=== PATIENT | male | born 1980 | race Caucasian/White ===

== ENCOUNTER 2017-02-28 17:42 | Emergency (ER) | payer SELFPAY ==
--- NOTE | 2017-02-28 18:10 | ERPHSYRPT ---
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-REPORTS PROBLEMS AT WORK THE LAST WEEK ET BREAKING UP WITH HIS GIRLFRIEND TODAY Triage Nursing Assessment: PT PINK WARM ET [id number] ALL QUESTIONS- COOPERATIVE WITH STAFF-DENIES PAIN-DENIES RECENT ILLNESS-MOVING ALL EXTREMITIES WITH EASE-RESP EASY ET NONLABORED-PT ET POLICE REPORT PT HAD BRICKS IN BOTH HANDS ET WAS PACING IN THE YARD-PT STATES HE KNEW WHAT HE WAS DOING BUT DID NOT KNOW WHY-STATES "I JUST FREAKED OUT I GUESS" Timing/Duration: other (patient states he is chronically anxoius, this has been worse this week and apparently broke up with his girlfriend) Modifying Factors: Improves With: nothing Associated Symptoms: No nausea, No vomiting, No abdominal pain, No shortness of breath, No heartburn, No diaphoresis, No cough, No chills, No chest pain, No fever, No headaches, No loss of appetite, No malaise, No rash, No syncope, No seizure, No weakness Hx Tetanus, Diphtheria Vaccination/Date Given: No Hx Influenza Vaccination/Date Given: Yes (2015) Hx Pneumococcal Vaccination/Date Given: No <ACE MADRID - Last Filed: 02/28/17 19:13> <GENEVIEVE PÉREZ - Last Filed: 02/28/17 20:49> - History of Present Illness Time Seen by Provider: 02/28/17 17:59 Physician History: This is a 37-year-old white male who denies significant past medical history. He is brought by the police. According the patient he has been upset he was noted by the police to be walking outside with 2 bricks in his hand he apparently states he has chronic anxiety this has been going worse lately he apparently broke up with his girlfriend today and was noted to be walking around with a brick in his hand. When I asked him if he was wanting to kill himself or harm anybody else he stated no however when I asked him what he had the bricks in his hands for he states it was to protect himself. When I asked him if anybody wanted to harm him he said no. He does state that he feels like he has messed up in the head. He states he is anxious. He states he has been using methamphetamine he states he drinks daily 2-3 beers during the week and more on the weekend. He also smokes occasional marijuana. Past medical history patient denies. (ACE MADRID) Allergies/Adverse Reactions: No Known Drug Allergies Allergy (Verified 02/28/17 17:51) Home Medications: Aspirin 81 gm Chew [Baby Aspirin 81 mg Chew] 81 mg PO DAILY 02/28/17 [ History] - Review of Systems Constitutional: No Fever, No Chills Eyes: No Symptoms Ears, Nose, & Throat: No Symptoms Respiratory: No Cough, No Dyspnea Cardiac: No Chest Pain, No Edema, No Syncope Abdominal/Gastrointestinal: No Abdominal Pain, No Nausea, No Vomiting, No Diarrhea Genitourinary Symptoms: No Dysuria Musculoskeletal: No Back Pain, No Neck Pain Skin: No Rash Neurological: No Dizziness, No Focal Weakness, No Sensory Changes Psychological: Alcohol Abuse, Drug Abuse, Anxiety Endocrine: No Symptoms All Other Systems: Reviewed and Negative <ACE MADRID - Last Filed: 02/28/17 19:13> - Past Medical History Pertinent Past Medical History: Yes Neurological History: No Pertinent History ENT History: No Pertinent History Cardiac History: Hypertension Respiratory History: No Pertinent History Endocrine Medical History: No Pertinent History Musculoskeletal History: No Pertinent History GI Medical History: No Pertinent History History: No Pertinent History Psycho-Social History: No Pertinent History Male Reproductive Disorders: No Pertinent History Other Medical History: CLOTS - Past Surgical History Past Surgical History: No Neuro Surgical History: No Pertinent History Cardiac: No Pertinent History Respiratory: No Pertinent History Gastrointestinal: No Pertinent History Genitourinary: No Pertinent History Musculoskeletal: No Pertinent History Male Surgical History: No Pertinent History - Social History Smoking Status: Never smoker How long have you smoked: 14 YEARS Exposure to second hand smoke: No Drug Use: marijuana Patient Lives Alone: No <ACE MADRID - Last Filed: 02/28/17 19:13> - Physical Exam General Appearance: anxiety, other (patient avoids eye contact) Eye Exam: PERRL/EOMI, eyes nml inspection Ears, Nose, Throat Exam: normal ENT inspection, TMs normal, pharynx normal, moist mucous membranes Neck Exam: normal inspection, non-tender, supple, full range of motion Respiratory Exam: normal breath sounds, lungs clear, No respiratory distress Cardiovascular Exam: regular rate/rhythm, normal heart sounds, normal peripheral pulses Gastrointestinal/Abdomen Exam: soft, normal bowel sounds, No tenderness, No mass Back Exam: normal inspection, normal range of motion, No CVA tenderness, No vertebral tenderness Extremity Exam: normal inspection, normal range of motion, pelvis stable Neurologic Exam: alert, oriented x 3, cooperative, normal mood/affect, nml cerebellar function, nml station & gait, sensation nml, No motor deficits Skin Exam: normal color, warm, dry, No rash SpO2 Interpretation: normal (96%) SpO2: 96 Oxygen Delivery: Room Air <ACE MADRID - Last Filed: 02/28/17 19:13> <GENEVIEVE PÉREZ - Last Filed: 02/28/17 20:49> - Nursing Vital Signs Nursing Vital Signs: Initial Vital Signs Temperature 98.8 F Temperature Source Oral Pulse Rate 100 Respiratory Rate 20 Blood Pressure [Right Arm] 140/70 Pain Intensity 0 - Course Nursing assessment & vital signs reviewed: Yes EKG Interpreted by Me: RATE (129 bpm), Sinus Tach, NORMAL AXIS, Other (EKG, sinus tachycardia, 129 bpm, normal axis, no acute ST or T wave changes noted) <ACE MADRID - Last Filed: 02/28/17 19:13> - Progress Progress: improved <ACE MADRID - Last Filed: 02/28/17 19:13> <GENEVIEVE PÉREZ - Last Filed: 02/28/17 20:49> - Progress Progress Note: 02/28/17 18:28 This is a 37-year-old white male brought by the police the patient was apparently found outside holding to breakfast in his hand and walking around Patient states that he has been chronically anxious he has been worse so lately has been having trouble at work he apparently broke up with his girlfriend today. Patient states that he has been using methamphetamines frequently including today he states that he has been drinking daily. He admits to using marijuana. Patient states that "I am messed up in my head" He states he is chronically anxious and wants treatment When I asked the patient about bricks in his hands I asked if he wanted homicidal or suicidal ideation, he stated that he did not want to hurt himself or anybody else but he had the bricks for protection. When I asked him if he thought anybody wanted to hurt and he said no. The nurses noted that while patient was in the room he apparently heard me dictating or talking and noted to the nurse that "I was pissing him off", apparently thinking I was talking about him. Will go ahead and get CBC CMP urine drug screen EtOH EKG. Will plan on psych consult. When I talk to the patient about possibly obtaining a psych consult with [facility] he was very open to the idea. 02/28/17 19:12 The patient's case has been discussed with Dr Garcia, Dr Pérez will assume care of this patient due to shift change. (ACE MADRID) 02/28/17 19:[address] PÉREZ 191: ANXIOUS BUT COOPERATIVE, PERRL, EOMI, PHARYNX PINK , LUNGS CLEAR, NO CARDIAC RUB, ABDOMINAL B.S. NORMAL, AVOIDS EYE CONTACT. 02/28/17 20:47 [facility] EVALUATION: PT MAY GO HOME AND FOLLOW UP WITH [facility] ON Thursday03/02/17. (GENEVIEVE PÉREZ) <ACE MADRID - Last Filed: 02/28/17 19:13> - Departure Time of Disposition: 20:49 Departure Disposition: Home Critical Care Time: No <GENEVIEVE PÉREZ - Last Filed: 02/28/17 20:49> - Departure Clinical Impression: ANXIETY, UTI, METHAMPHETAMINE USE, HTN Condition: Fair Referrals: BALJEET COBURN [Primary Care Provider] - Instructions: Anxiety -- Adult, Urinary Tract Infection (UTI) Additional Instructions: FOLLOW UP WITH PRIVATE DOCTOR TOMORROW. FOLLOW UP WITH [facility] ON THURSDAY MARCH 02, 2017. Prescriptions: Smz/Tmp Ds Tablet [Bactrim Ds Tablet] 1 udtab PO BID #20 tablet
[2017-02-28 18:29] LABS: BASOPHIL % 0.2 % (0.0-0.4); Eosinophil % 0.6 % (0.00-5.0); Granulocytes % 72.5 % (36.0-66.0); Mean Cell Volume 89.6 fl (78-100); Mean Corpuscular Hemoglobin 30.7 pg (26-32); Mean Platelet Volume 9.8 fl (6-9.5); Monocytes % 10.7 % (0.0-12.0); Platelet Count 260 K/mm3 (150-450); Red Blood Count 5.02 M/mm3 (4.1-5.6); Red Cell Distribution Width 13.1 % (11.5-14.0); White Blood Count 9.4 K/mm3 (4.0-10.5)
[2017-02-28] MEDS ORDERED: Sodium Chloride 0.9% 1000 ML 1,000 ML IV STA ×2 (18:33→19:21)
[2017-02-28] MEDS ORDERED: Ativan 2 MG/1 ML VIAL IV ONE (18:33)
[2017-02-28] MEDS ORDERED: Ativan 2 MG/1 ML VIAL ONE (18:34)
[2017-02-28 18:35] LABS: ADD URINE CULTURE? YES (NO); Bacteria FEW /HPF (NEGATIVE); COMPLETE URINE MICROSCOPIC? YES; Collection Type VOID; Epithelial Cells FEW /HPF (FEW); Hyaline Casts 0-2 /LPF (0-2); Mucus SLIGHT /HPF (NEGATIVE); RBC CASTS 0-2 /LPF (NEGATIVE)
[2017-02-28] MEDS ORDERED: Sodium Chloride 0.9% 1000 ML 1,000 ML ONE ×2 (18:42→20:01)
[2017-02-28 18:46] LABS: ALBUMIN 4.4 g/dL (3.4-5.0); ALKALINE PHOSPHATASE 59 U/L (46-116); ANION GAP 14.4 MEQ/L (5-15); BLOOD UREA NITROGEN 18 mg/dL (9-20); CHLORIDE 105 mEq/L (98-107); Carbon Dioxide 23.7 mEq/L (21-32); Glucose 109 MG/DL (70-110); Potassium 3.9 mEq/L (3.5-5.1); SGOT/AST 43 U/L (15-37); SGPT/ALT 66 U/L (12-78); SODIUM 139 mEq/L (136-145); Total Protein 8.7 gm/dL (6.4-8.2)
[2017-02-28 18:50] LABS: ACETAMINOPHEN < 2.0 ug/ml (10-30)
[2017-02-28 18:54] VITALS: BP 140/70; PULSE 100
[2017-02-28 18:55] VITALS: O2SAT 96
[2017-02-28] MEDS ORDERED: ROCEPHIN 1 Gm-D5w 50 ml Bag** 1 G/50 ML IVPB IV STA (19:35)
[2017-02-28] MEDS ORDERED: Valium 5 MG PO ONE (19:39)
[2017-02-28] MEDS ORDERED: Valium 5 MG ONE (19:42)
[2017-02-28] MEDS ORDERED: ROCEPHIN 1 Gm-D5w 50 ml Bag** 1 G/50 ML IVPB IV ONE (19:43)
== END 2017-02-28 21:19 | disposition home or self-care (01) ==
LOC: ED 17:42
DX: F41.9 Anxiety disorder, unspecified (principal); N39.0 Urinary tract infection, site not specified; F11.90 Opioid use, unspecified, uncomplicated; I10 Essential (primary) hypertension
CPT/HCPCS: 36000; 36415; 80053; 80307; 80320; 81000; 82550; 83986; 84484; 85025; 87086; 90791; 93005; 96360; 96361; 96365; 96374; 99285; G0481; J0696; J2060; Q3014; A9270-GY

== ENCOUNTER 2019-05-30 23:31 | Emergency (ER) | payer SELFPAY ==
--- NOTE | 2019-05-30 23:37 | ERPHSYRPT ---
- History of Present Illness Time Seen by Provider: 05/30/19 23:36 Source: patient, family Exam Limitations: no limitations Physician History: 39 y/o white male presents with left inner thigh pain that has worsened today. pt denies injury and denies h/o dvt in the past. pt denies cp and denies soa Method of Injury: other (no injury) Occurred: this morning Quality: aching, tightness Severity of Pain-Max: moderate Severity of Pain-Current: mild Lower Extremities Pain: leg: left (upper inner thigh) Modifying Factors: Improves With: nothing Associated Symptoms: none Allergies/Adverse Reactions: No Known Drug Allergies Allergy (Verified 05/30/19 23:36) Home Medications: No Reportable Medications [No Reported Medications] 05/30/19 [History] Hx Tetanus, Diphtheria Vaccination/Date Given: No Hx Influenza Vaccination/Date Given: Yes (2015) Hx Pneumococcal Vaccination/Date Given: No - Review of Systems Constitutional: No Symptoms Eyes: No Symptoms Ears, Nose, & Throat: No Symptoms Respiratory: No Symptoms Cardiac: No Symptoms Abdominal/Gastrointestinal: No Symptoms Genitourinary Symptoms: No Symptoms Musculoskeletal: No Symptoms, Other (tenderness left upper inner thigh) Skin: No Symptoms Neurological: No Symptoms Psychological: No Symptoms Endocrine: No Symptoms Hematologic/Lymphatic: No Symptoms Immunological/Allergic: No Symptoms All Other Systems: Reviewed and Negative - Past Medical History Pertinent Past Medical History: Yes Neurological History: No Pertinent History ENT History: No Pertinent History Cardiac History: Hypertension Respiratory History: No Pertinent History Endocrine Medical History: No Pertinent History Musculoskeletal History: No Pertinent History GI Medical History: No Pertinent History History: No Pertinent History Psycho-Social History: No Pertinent History Male Reproductive Disorders: No Pertinent History Other Medical History: CLOTS - Past Surgical History Past Surgical History: No Neuro Surgical History: No Pertinent History Cardiac: No Pertinent History Respiratory: No Pertinent History Gastrointestinal: No Pertinent History Genitourinary: No Pertinent History Musculoskeletal: No Pertinent History Male Surgical History: No Pertinent History - Social History Smoking Status: Never smoker How long have you smoked: 14 YEARS Exposure to second hand smoke: No Drug Use: marijuana Patient Lives Alone: No - Nursing Vital Signs Nursing Vital Signs: Initial Vital Signs Temperature 98.2 F 05/30/19 23:38 Pulse Rate 101 H 05/30/19 23:38 Respiratory Rate 20 05/30/19 23:38 Blood Pressure 157/90 05/30/19 23:38 O2 Sat by Pulse Oximetry 98 05/30/19 23:38 Pain Scale Pain Intensity 8 - Physical Exam General Appearance: no apparent distress, alert, anxiety Eyes, Ears, Nose, Throat Exam: normal ENT inspection, moist mucous membranes Neck Exam: normal inspection, non-tender, supple, full range of motion Cardiovascular/Respiratory Exam: chest non-tender Gastrointestinal/Abdominal Exam: non-tender Back Exam: normal inspection, normal range of motion, No CVA tenderness, No vertebral tenderness Hips Exam: bilateral: non-tender, normal inspection, normal range of motion, no evidence of injury Legs Exam: right leg: non-tender, left leg: normal inspection, normal range of motion, no evidence of injury, soft tissue tenderness Knees Exam: bilateral knee: non-tender, normal inspection, normal range of motion, no evidence of injury Ankle Exam: bilateral ankle: non-tender, normal inspection, normal range of motion, no evidence of injury Foot Exam: bilateral foot: non-tender, normal inspection, normal range of motion , no evidence of injury Neuro/Tendon Exam: normal sensation, normal motor functions, normal tendon functions, no evidence tendon injury Mental Status Exam: alert, oriented x 3, cooperative Skin Exam: normal color, warm, dry SpO2 Interpretation: normal O2 Delivery: Room Air Ordered Tests: Active Orders 24 hr Category Date Time Status D-DIMER QUANTITATION Stat Lab 05/30/19 23:53 Ordered - Progress Progress: unchanged - Departure Departure Disposition: AMA Clinical Impression: Left leg pain Condition: Stable Critical Care Time: No Referrals: BALJEET COBURN [Primary Care Provider] -
[2019-05-30 23:48] VITALS: BP 157/90; PULSE 101; O2SAT 98
== END 2019-05-31 00:16 | disposition left against medical advice (07) ==
LOC: ED 23:31
DX: M79.605 Pain in left leg (principal)
CPT/HCPCS: 36415; 85379; 99283